=== PATIENT | male | born 1960 | race Caucasian/White ===

== ENCOUNTER 2022-11-26 15:04 | Emergency (ER) | payer BC, SELFPAY ==
[2022-11-26 15:16] VITALS: BP 228/111; PULSE 66; RESP 16; TEMP 36.2; O2SAT 99; BMI 27.4
--- NOTE | 2022-11-26 15:38 | CRLHL7_ITS ---
For Patients: As a result of the Century Cures Act, medical imaging exams and procedure reports are released immediately into your electronic medical record. You may view this report before your referring provider. If you have questions, please contact your health care provider. Indication: Frontal headaches Technique: Volumetric multidetector CT images of the head were obtained without the administration of low osmolar intravenous contrast. Comparison: None available Findings: There is no intra-axial or extra-axial fluid collection. There is no mass effect or midline shift. There is mild global cortical atrophy with sulcal widening consistent with age. There is mild to moderate chronic small vessel disease change within the subcortical and periventricular white matter. Otherwise, the brain parenchyma is preserved in attenuation and jacob-white differentiation. The orbits and their contents are grossly within normal limits. The bony calvarium is grossly intact. The paranasal sinuses are clear. The mastoid air cells are well aerated. Impression: Mild to moderate chronic small vessel disease change without acute intracranial abnormality. Please note that all CT scans at this facility use dose modulation, iterative reconstruction, and/or weight-based dosing when appropriate to reduce radiation dose to as low as reasonably achievable. Dictated by Boni Hatch MD @ 11/26/2022 5:19:58 PM (Electronically Signed)
[2022-11-26 16:07] LABS: Chloride* 105 mmol/L (96-114); Potassium* 4.9 mmol/L (3.6-5.1); Sodium* 138 mmol/L (135-149)
[2022-11-26 16:10] LABS: Anion Gap 5 mEq/L (7-15); Carbon Dioxide* 28 mmol/L (20-32); Creatinine* 1.7 mg/dL (0.5-1.5); Est. Creatinine Clearance* 43.59; Estimated Glomerular Filt Rate 45 ml/min
[2022-11-26 16:11] LABS: Blood Urea Nitrogen* 30 mg/dL (7-30); Glucose* 93 mg/dL (60-115)
[2022-11-26 16:49] VITALS: BP 203/111; PULSE 65; O2SAT 98
--- NOTE | 2022-11-26 17:17 | ED_ITS ---
HPI - General Adult General Date Seen: 11/26/22 Chief complaint: Hypertension Stated complaint: bp 227/125 Time Seen by Provider: 11/26/22 15:28 Source: patient Mode of arrival: ambulatory Limitations: no limitations History of Present Illness HPI narrative: Patient is a 62-year-old male who apparently went to urgent care yesterday because of headaches for the past couple of weeks. He was diagnosed with a sinus infection and started on doxycycline, but also was told that his blood pressure was significantly high and he needed to see his doctor ?right away. He was unable to make an appointment until later in the month, so he apparently called the triage line and was told to come to the ER today. Of note, he does not really have a lot of symptoms of congestion, has not had any cold or flu symptoms. Has not had a fever. His headache is worse when he leans forward or when he tries to lay down. He is not waking up with severe headaches, has had headaches pretty much throughout the day for the past couple of weeks. Does not have neck pain, did not have sudden onset of severe pain. He notes that he has history of high blood pressure, was on he believes lisinopril for while years ago but stopped taking it and has not been on anything for very long time. He denies any other health history. He does smoke. He has not been having any chest pain or difficulty breathing. Related Data Previous Rx's Medication Instructions Recorded doxycycline hyclate 100 mg capsule 100 mg PO BID 5 days #10 caps 11/25/22 lisinopril 40 mg tablet 40 mg PO DAILY #30 tabs 11/26/22 Allergies Allergy/AdvReac Type Severity Reaction Status Date / Time No Known Drug Allergies Allergy Verified 07/18/22 17:21 Review of Systems Status of ROS: Reports: 10 or more systems reviewed and unremarkable except as noted in History and below [facility] Social History Smoking Status: Current every day smoker What tobacco products do you use: cigarettes Smoking packs per day: 0.5 Smoking cigarettes per day: 10.0 How often do you have a drink containing alcohol: never AUDIT-C Alcohol total score: 0 Non-prescribed substance use: denies use service: No Exam Narrative: Exam Narrative: Vital signs as noted above. In general, an alert, well-appearing patient. Head: Normocephalic, atraumatic. Eyes: Pupils are equal reactive. Extraocular movements are full. Conjunctivae are normal. ENT: Mucous membranes are moist. Throat is normal. Neck: Supple without lymphadenopathy. Heart: Regular rate and rhythm. No murmur or rub. Lungs: Clear bilaterally. No increased work of breathing, crackles or wheezes. Abdomen: Soft and nontender. No organomegaly. Extremities: Well perfused. No edema. No calf tenderness. Pulses intact. Neurologic: Patient is alert and oriented to person and place. Speech is fluent. Face is symmetric. Moves all extremities equally. Affect: Normal. Skin: Warm and dry. Well perfused. Const: Vital Signs, click to edit/add: Vital Signs - 24 hr 11/26/22 15:16 11/26/22 16:49 Temperature 97.1 F L Pulse Rate [Right Pulse Oximeter] 66 65 Respiratory Rate 16 Blood Pressure [Ri ght Upper Arm] 228/111 H 203/111 H Pulse Oximetry 99 98 Oxygen Delivery Me thod Room Air Course Course ED Course: Because the patient has had no real contact with healthcare for a very long time and cannot get in to see his primary doctor for it would appear at least a few weeks, I elected to do metabolic panel and check his renal function as I think I will start him on an antihypertensive, probably lisinopril. In addition, with headaches for the past couple of weeks and minimal strong evidence of sinusitis, I elected to do a CT scan here today. He does not have any neurologic signs or symptoms which are concerning. CT scan of the head read as negative by Radiology. His creatinine today is 1.7. I am going to go ahead and start him on 40 mg of lisinopril given his significantly elevated blood pressures today. I have asked him to check his blood pressure once or twice a day, keep track of the number so that he can review those with his primary doctor. If he were to find that his blood pressures respond more significantly than expected and he is running low, he can reduce the lisinopril dose by half. I have asked him to make sure he makes a follow-up appointment with his doctor as soon as possible, understanding that that will probably be a few weeks from now. Return to the ER on the meantime if severe symptoms develop, such as severe headache, neurologic changes, severe chest pain, etcetera. Vital Signs Vital signs: Initial Vital Signs Temperature 97.1 F L 11/26/22 15:16 Temperature Source Temporal Artery Scan 11/26/22 15:16 Pulse Rate 66 11/26/22 15:16 Pulse Rhythm Regular 11/26/22 15:16 Respiratory Rate 16 11/26/22 15:16 Blood Pressure 228/111 H 11/26/22 15:16 Blood Pressure Mean 150 H 11/26/22 15:16 Blood Pressure Position Sitting 11/26/22 15:16 Pulse Oximetry 99 11/26/22 15:16 Vital Signs Temperature 97.1 F L 11/26/22 15:16 Pulse Rate 66 11/26/22 15:16 Respiratory Rate 16 11/26/22 15:16 Blood Pressure 228/111 H 11/26/22 15:16 Pulse Oximetry 99 11/26/22 15:16 Temperature 97.1 F L 11/26/22 15:16 Pulse Rate 65 11/26/22 16:49 Respiratory Rate 16 11/26/22 15:16 Blood Pressure 203/111 H 11/26/22 16:49 Pulse Oximetry 98 11/26/22 16:49 Oxygen Delivery Method Room Air 11/26/22 16:49 Medical Decision Making Lab Data Labs: Lab Results 11/26/22 Range/Units 15:50 Sodium 138 (135-149) mmol/L Potassium 4.9 (3.6-5.1) mmol/L Chloride 105 (96-114) mmol/L Carbon Dioxide 28 (20-32) mmol/L Anion Gap 5 L (7-15) mEq/L BUN 30 (7-30) mg/dL Creatinine 1.7 H (0.5-1.5) mg/dL Estimated Creat Clear 43.59 Estimated GFR 45 ml/min Glucose 93 (60-115) mg/dL Calcium 10.0 (8.4-10.6) mg/dL Discharge Plan Discharge Clinical Impression: Hypertension Patient Disposition: Home, Self-Care Condition: Stable Instructions: Hypertension (ED) Additional Instructions: Start lisinopril as ordered. Primary care follow-up as soon as feasible. Your creatinine today was 1.7, which is just minimally elevated. Check your blood pressure once or twice a day, keep track of these numbers so that you can discuss them with your primary doctor when you follow-up. If you find that your numbers are running low, such as below 100/60, you can take half the dose of the lisinopril daily. Prescriptions: New lisinopril 40 mg tablet 40 mg PO DAILY Qty: 30 2RF No Action doxycycline hyclate 100 mg capsule 100 mg PO BID 5 Days Qty: 10 0RF Follow Up/Referrals: Nilesh Yin MD [Primary Care Provider] - Stand Alone Forms: [facility] Info Instructions
== END 2022-11-26 17:36 | disposition home or self-care (01) ==
PROVIDERS: Emergency Provider Emergency Medicine; PCP Family Medicine
DX: I10 Essential (primary) hypertension (principal)
CPT/HCPCS: 36415; 70450; 80048; 99284